=== PATIENT | male | born 1935 | race Two or more races ===

== ENCOUNTER 2017-10-07 07:03 | Outpatient (CLI) | payer OTHER, BC ==
[~2017-10-07 07:03] MED LIST: CARDIZEM CD240 MG; CIPRO750 MG PO; CLONAZEPAM1 MG PO; COLACE100 MG PO; FLEXERIL5 MG; FLOMAX; HYZAAR 50-12.1 UDTAB; METHYLPRED4 MG/DOSE- PO; NEURONTIN800 MG PO; PERCOCET 5/3251 TAB PO
== END 2017-10-07 07:07 | disposition home or self-care (01) ==
LOC: RAD 07:03
DX: M51.36 Other intervertebral disc degeneration, lumbar region (principal)

== ENCOUNTER → 2018-01-12 06:30 | Outpatient (CLI) | payer OTHER, BC | END | disposition home or self-care (01) | LOC: LAB 06:30 | DX: D64.89 Other specified anemias (principal); N39.0 Urinary tract infection, site not specified; R53.1 Weakness; D65 Disseminated intravascular coagulation [defibrination syndrome]; R07.9 Chest pain, unspecified; I10 Essential (primary) hypertension ==

== ENCOUNTER 2018-04-07 06:35 | Outpatient (CLI) | payer OTHER, BC | END 2018-04-07 06:58 | disposition home or self-care (01) | LOC: RAD 06:35 | DX: M20.41 Other hammer toe(s) (acquired), right foot (principal); M20.42 Other hammer toe(s) (acquired), left foot; M20.11 Hallux valgus (acquired), right foot; M20.12 Hallux valgus (acquired), left foot ==

== ENCOUNTER 2018-05-04 06:14 | Outpatient (CLI) | payer OTHER, BC | END 2018-05-04 06:41 | disposition home or self-care (01) | LOC: LAB 06:14 → RAD 06:14 → LAB 06:41 | DX: I77.89 Other specified disorders of arteries and arterioles (principal); M20.11 Hallux valgus (acquired), right foot; N39.0 Urinary tract infection, site not specified ==

== ENCOUNTER 2018-06-01 08:44 | Outpatient (CLI) | payer OTHER, BC | END 2018-06-01 10:47 | disposition home or self-care (01) | LOC: RAD 501 08:44 | DX: M20.12 Hallux valgus (acquired), left foot (principal); M20.41 Other hammer toe(s) (acquired), right foot ==

== ENCOUNTER → 2018-07-16 11:40 | Outpatient (CLI) | payer OTHER, BC | END | disposition home or self-care (01) | LOC: LAB 11:40 | DX: N39.0 Urinary tract infection, site not specified (principal) ==

== ENCOUNTER 2018-12-24 07:20 | Outpatient (CLI) | payer OTHER, BC | END 2018-12-24 12:08 | disposition home or self-care (01) | LOC: LAB 07:20 | DX: E78.2 Mixed hyperlipidemia (principal); I11.9 Hypertensive heart disease without heart failure ==